=== PATIENT | male | born 1950 | race Caucasian/White ===

== ENCOUNTER 2025-02-19 07:25 | Day surgery (SDC) | payer MEDICARE, OTHER ==
[2025-02-16 09:35] VITALS: BP 125/66
[~2025-02-19] VITALS: Ht 177.8 cm; Wt 113.6 kg
[~2025-02-19 07:25] MED LIST: ALLERCLEAR10 MG PO; ALPRAZOLAM ER1 MG PO; ALPRAZOLAM0.5 MG PO; ALPRAZOLAM1 MG PO; ASPIRIN81 MG PO; ATORVASTATIN CA40 MG PO; BENEFIBER1 EAC1 PO; CANDICIDAL CAP1 EACH PO; CEFAZOLIN SODIUM 2 GM/20 ML SYR IV SCH; CLARITIN10 M2 PO; COUMADIN5 MG PO; D3-501250 MCG PO; ENBREL50 MG/1 M1 SQ; FLOMAX0.4 MG PO; HYDROCODON-ACE1 EA11 PO; IBLOOD GLUCOSE TEST STRIP 1 EA TEST VI PRN; IBUPROFEN200 MG PO; IRBESARTAN150 MG PO; LACTATED RINGER'S 1,000 ML IV SCH; LIDOCAINE HCL 1% 5 ML SDV INJ ONE; LIPITOR20 MG; LISINOPRIL40 MG PO; MELATONIN10 MG PO; METOPROLOL TART50 MG PO; MIDAZOLAM HCL 5 MG/5 ML VIAL IV PRN; MULTI-DAY VITA1 EACH PO; OMEPRAZOLE20 MG PO; OXYCODONE HCL10 MG PO; PERCOCET 7.5-31 EACH PO; SKYRIZI150 MG/1 M; SUPER B COMPLE150 MG PO; SUPER B-COMPL400 MCG PO; TYLENOL325 MG PO; XARELTO10 MG PO; ZINC50 M2 PO; fentaNYL citrate 100 MCG/2 ML VIAL IV PRN; propofoL 200 MG/20 ML VIAL ONE
[2025-02-19 07:37] VITALS: BP 142/58
[2025-02-19] MEDS ORDERED: DOXYCYCLINE HY100 MG PO (07:44)
[2025-02-19] MEDS ORDERED: ACETAMINOPHEN1 EAC1 PO (07:44)
[2025-02-19 09:36] VITALS: BP 97/63
--- NOTE | 2025-02-19 10:01 | OR ---
[facility] [address], [place] [address] Signed DATE OF OPERATION: 02/19/2025 SURGEON: Elaina Faulkner MD PREOPERATIVE DIAGNOSES: 1. Personal history of hyperplastic polyps. 2. Diverticulosis. POSTOPERATIVE DIAGNOSES: 1. Multiple chronic rectal arteriovenous malformations. 2. Sigmoid diverticulosis. 3. Tortuous sigmoid colon. 4. [id number]-gq-rsltsgyd internal hemorrhoids. PROCEDURE: Colonoscopy without biopsy. ESTIMATED BLOOD LOSS: None. INDICATIONS: Vin is a 75-year-old obese gentleman asked to see me for a followup colonoscopy. He came in 2008 at the age of 59. He had a 5 mm hyperplastic polyp taken out of the transverse colon. We asked him to follow up in 10 years. He came in 2013 at the age of 64 with some rectal bleeding. He had two tiny hyperplastic polyps taken out of the left colon. He had little diverticulosis. We asked him to return in 10 years. He stopped by the office in 2018 at the age of 69. After reviewing his records, we put him our schedule for 2023. In the meantime, he did have a carotid artery stent placed. He now is on aspirin. 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 He has also gained some weight in skilled nursing. He still needs a CPAP mask for his sleep apnea. Consequently, we asked for monitored anesthesia care with propofol infusion. That worked out very well as he needed constant airway management. There is no family history of colon cancer or polyps. He has no lower GI complaints. In the office, I gave him a pamphlet on colonoscopy. He recalls the nature of the test. There is risk including, but not limited to gas bloating, crampy abdominal pain, bleeding, perforation requiring surgery, and missed diagnosis. We also reviewed the written instructions for bowel prep line by line. It is the same bowel prep he has taken before. He understands an adult person has to take him home afterwards, he said that usually his . He had expressed understanding and wished to proceed. Electronically Signed By: ELAINA FAULKNER MD 02/19/25 1001 PATIENT NAME: VIN CHOI OPERATIVE REPORT DATE OF : 54 REPORT #: [id number] PHYSICIAN: ELAINA FAULKNER MD PCP: DYANA YANES DO REPORT IS CONFIDENTIAL AND NOT TO BE RELEASED WITHOUT AUTHORIZATION [facility] [address], [place] [address] Signed DESCRIPTION OF PROCEDURE: Vin was taken into our endoscopy suite and placed in the left lateral decubitus position. 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 He required close monitoring of the airway in the entire procedure. A digital rectal exam was performed. No external hemorrhoids. Good sphincter tone. He is a very large man. I could just feel the bottom of his indurated enlarged prostate gland. The adult colonoscope was introduced and advanced under direct visualization of camera. It took me a while to get through the sigmoid colon. He does have moderate sigmoid diverticula. There, he also has a tortuous sigmoid colon. After that, we got the camera around and into the cecum itself with a little abdominal compression. His prep was good. We could easily see the appendiceal orifice and ileocecal valve. The scope was then slowly withdrawn. We found no polyps throughout the entire colon or rectum. Once in the rectum, the scope was retroflexed and he does have hiybrxu-he-ybucdkrh internal hemorrhoid columns. He always has chronic rectal AVMs. After this, the gas was suctioned out, the colonoscope removed. Vin tolerated procedure quite well. RECOMMENDATIONS: Vin would be on the 10-year plan given his personal and family history; however, that puts him at age 85. I think from henceforth, he will be as needed. If he decides to have another colonoscopy, he will certainly need monitored anesthesia care. Elaina Faulkner MD ALB/MODL /[id number] cc: DO Elaina Monreal MD Mershed Alsamara, MD Copies: DYANA YANES ANDREW L MD Electronically Signed By: ELAINA FAULKNER MD 02/19/25 1001 PATIENT NAME: VIN CHOI OPERATIVE REPORT DATE OF : 54 REPORT #: [id number] PHYSICIAN: ELAINA FAULKNER MD PCP: DYANA YANES DO REPORT IS CONFIDENTIAL AND NOT TO BE RELEASED WITHOUT AUTHORIZATION [facility] [address] [place] [id number] Signed STEVEN VÁZQUEZ MD ~ Electronically Signed By: ELAINA FAULKNER MD 02/19/25 1001 PATIENT NAME: VIN CHOI OPERATIVE REPORT DATE OF : 54 REPORT #: [id number] PHYSICIAN: ELAINA FAULKNER MD PCP: DYANA YANES DO REPORT IS CONFIDENTIAL AND NOT TO BE RELEASED WITHOUT AUTHORIZATION
--- NOTE | 2025-02-19 10:54 | NUR ---
02/19/25 1054 Sheets,Keiry 0905 PT ARRIVED TO PACU ON 10L VIA MASK WITH ORAL AND NASAL AIRWAYS IN PLACE. LARGE AMOUNT OF SNORING NOTED. 0910 BIOINFORMATICS ASSISTANT NOTED DECREASED BP AND MEDICATION GIVEN PER EMAR. 0914 PT WOKE TO TACTILE STIMULI AND AIRWAYS REMOVED. PT REORIENTED TO PACU AND ENCOURAGED TO DEEP BREATHE OFF AND ON AND PASS GAS NEEDED. 09 PT STARTS TO ROLL TO HIS BACK AND HOB INCREASED. PT SIPPING WATERAND DENIES CONCERNS. 0945 DC INSTRUCTIONS GIVEN AND ALL QUESTIONS ANSWERED. PT GETTING DRESSED AND DENIES CONCERNS. 0952 PT DC VIA WC TO HIS FRIEND AND DC PAPERWORK GIVEN AND ALL BELONGINGS WITH PT.
== END 2025-02-19 09:56 | disposition home or self-care (01) ==
LOC: DS 07:25
PROVIDERS: ATTEND Colon & Rectal Surgery
PROC: 0DJD8ZZ Inspection of Lower Intestinal Tract, Via Natural or Artificial Opening Endoscopic (ICD-10-PCS; principal; 2025-02-19 09:10)
DX: Z12.11 Encounter for screening for malignant neoplasm of colon (principal); K55.20 Angiodysplasia of colon without hemorrhage; K57.30 Diverticulosis of large intestine without perforation or abscess without bleeding; K63.89 Other specified diseases of intestine; K64.8 Other hemorrhoids; I10 Essential (primary) hypertension; L40.9 Psoriasis, unspecified; G47.33 Obstructive sleep apnea (adult) (pediatric); I73.9 Peripheral vascular disease, unspecified; E78.5 Hyperlipidemia, unspecified; I65.23 Occlusion and stenosis of bilateral carotid arteries; E66.9 Obesity, unspecified; Z68.37 Body mass index [BMI] 37.0-37.9, adult; Z86.0102 Personal history of hyperplastic colon polyps; Z87.891 Personal history of nicotine dependence; Z79.82 Long term (current) use of aspirin; Z79.899 Other long term (current) drug therapy; Z88.0 Allergy status to penicillin; Z88.8 Allergy status to other drugs, medicaments and biological substances; Z95.2 Presence of prosthetic heart valve
CPT/HCPCS: 00811; J0690; J2704; J7121